=== PATIENT | male | born 1960 | race Asian ===

== ENCOUNTER 2018-04-01 19:30 | Emergency (ER) | payer OTHER ==
[~2018-04-01] VITALS: Ht 157.5 cm; Wt 78.0 kg
[2018-04-01 19:53] LABS: PLATELET COUNT 338 K/uL (142-355)
[2018-04-01 20:00] LABS: POTASSIUM 3.8 mmol/L (3.6-5.2)
[2018-04-01 20:44] VITALS: BP 143/73; TEMP 98.3
[2018-04-02] MEDS ORDERED: GENERLAC10 GM/15 M PO (00:14)
[2018-04-02] MEDS ORDERED: METFORMIN HYDR850 MG PO (00:15)
[2018-04-02] MEDS ORDERED: TIMOLOL MAL0.5 % OPTH (00:17)
[2018-04-02] MEDS ORDERED: LYRICA200 MG PO (00:19)
[2018-04-02] MEDS ORDERED: REFRES2 XX (00:20)
[2018-04-02] MEDS ORDERED: PRAZ1CAP16 PO (00:22)
[2018-04-02] MEDS ORDERED: FENOFIBRATE160 MG PO (00:24)
[2018-04-02] MEDS ORDERED: MELATONIN5 M2 PO (00:26)
[2018-04-02] MEDS ORDERED: MAPAP325 MG PO (00:28)
[2018-04-02] MEDS ORDERED: GLIP10TA55 PO (00:29)
[2018-04-02] MEDS ORDERED: ATEN25TA21 PO (00:30)
[2018-04-02] MEDS ORDERED: HALO50IN4 IM (00:33)
[2018-04-02] MEDS ORDERED: CITALOPRAM10 M1 PO (00:34)
[2018-04-02] MEDS ORDERED: POLY GLYCOL3350 M1 PO (00:36)
[2018-04-02] MEDS ORDERED: DIVA500T2 PO (00:37)
[2018-04-02] MEDS ORDERED: TRAZODONE HYDR150 MG PO (00:38)
[2018-04-02] MEDS ORDERED: SEROQUEL200 MG PO (00:40)
== END 2018-04-01 20:48 | disposition other institution (70) ==
LOC: ED 19:37
PROVIDERS: Family Medicine
DX: F20.89 Other schizophrenia (principal); H54.7 Unspecified visual loss; E11.9 Type 2 diabetes mellitus without complications; I10 Essential (primary) hypertension; Z86.73 Personal history of transient ischemic attack (TIA), and cerebral infarction without residual deficits; F03.91 Unspecified dementia, unspecified severity, with behavioral disturbance
CPT/HCPCS: 36415; 80053; 81000; 85027; 87088; 93005; 99285